=== PATIENT | male | born 1960 | race Caucasian/White ===

== ENCOUNTER 2018-01-24 16:31 | Emergency (ER) | payer OTHER ==
[2018-01-24] MEDS ORDERED: IBUPROFEN 600 MG TAB PO STA (17:46)
--- NOTE | 2018-01-24 18:04 | XR ---
EXAMINATION TYPE: XR finger LT DATE OF EXAM: 01/24/2018 COMPARISON: NONE HISTORY: Second digit laceration TECHNIQUE: 3 views FINDINGS: There is some soft tissue swelling around the DIP joint of the left index finger. There is some spurring at the DIP joint. I see no acute fracture nor dislocation. There is soft tissue deformi ty. IMPRESSION: Soft tissue anterior deformity at the distal phalanx. No fracture seen. Tiny submillimete r foreign bodies noted near the skin surface.
--- NOTE | 2018-01-24 18:51 | ED ---
General Adult HPI - General Chief complaint: Wound/Laceration Stated complaint: Finger laceration Time Seen by Provider: 01/24/18 17:35 Source: patient, RN notes reviewed Mode of arrival: ambulatory Limitations: no limitations - History of Present Illness Initial comments: 57-year-old male presents to the emergency department for a chief complaint of laceration 1 hour. Patient states he was working on a car when something metal lacerated him. Patient states his tetanus was updated last year. Patient states he has sensation in that finger. Patient states he has no difficulty moving the finger. Patient denies any other injuries. Patient has no other complaints at this time including shortness of breath, chest pain, abdominal pain, nausea or vomiting, headache, or visual changes. - Related Data Previous Rx's Medication Instructions Recorded Cephalexin [Keflex] 500 mg PO Q12HR #20 cap 01/24/18 Allergies Allergy/AdvReac Type Severity Reaction Status Date / Time No Known Allergies Allergy Verified 01/24/18 18:52 Review of Systems ROS Statement: Those systems with pertinent positive or pertinent negative responses have been documented in the HPI. ROS Other: All systems not noted in ROS Statement are negative. Past Medical History Past Medical History: CVA/TIA Additional Past Medical History / Comment(s): brain aneursym History of Any Multi-Drug Resistant Organisms: None Reported Additional Past Surgical History / Comment(s): brain aneursym repain Past Psychological History: No Psychological Hx Reported Smoking Status: Never smoker Past Alcohol Use History: None Reported Past Drug Use History: None Reported General Exam Limitations: no limitations General appearance: alert, in no apparent distress Respiratory exam: Present: normal lung sounds bilaterally. Absent: respiratory distress, wheezes, rales, rhonchi, stridor Cardiovascular Exam: Present: regular rate, normal rhythm, normal heart sounds. Absent: systolic murmur, diastolic murmur, rubs, gallop, clicks Extremities exam: Present: full ROM (Full range of motion of the second digit left hand including the DIP.), tenderness (Tenderness to the laceration area. No tenderness elsewhere in the hand or scaphoid area.), normal capillary refill (Refill less than 2 seconds in distal phalanx left second finger as well as the rest of the hand and radial pulse 2+.), other (There is a 1.5 cm laceration of the volar aspect distal phalanx second finger of the left hand. No deep structures affected. All deep structures intact.). Absent: pedal edema, joint swelling Course Vital Signs 01/24/18 17:14 Temperature 97.9 F Pulse Rate 83 Respiratory 18 Rate Blood Pressure 146/76 O2 Sat by Pulse 96 Oximetry Procedures - Procedures Initial comment: Body area: Full aspect distal phalanx left second finger Laceration length: 1.5 cm Foreign bodies: no foreign bodies Tendon involvement: none Nerve involvement: none Vascular damage: no Anesthesia: digital block Local anesthetic: 3 mL 1% lidocaine Preparation: Patient was prepped and draped in the usual sterile fashion. Irrigation solution: saline Irrigation method:saline jet lavage, iodine Skin closure:5-0 Ethilon using sterile technique Number of sutures: 5 Technique: interupted Dressing: antibiotic ointment/ gauze Patient tolerance: Patient tolerated the procedure well with no immediate complications. Medical Decision Making - Medical Decision Making 57-year-old male presents to the emergency determine for chief complaint of laceration to the distal phalanx of the left second digit about one hour ago. Patient was working in a car when he lacerated it with of piece of metal. Patient had an updated tetanus as of last year. On exam there is a 1.5 cm laceration. Deep structures intact. No foreign bodies noted. No signs of cellulitis or infection noted. Wound was sutured with 5 sutures. He was prescribed Keflex because his hands are very dirty with grease that cannot be removed with soap in the emergency department. Patient will return in 7-10 days to have sutures removed. He will follow up with primary care in 1-2 days. Disposition Clinical Impression: Laceration Disposition: HOME SELF-CARE Condition: Good Instructions: Care For Your Stitches (ED), Laceration (ED) Additional Instructions: Please take antibiotic as directed. Please monitor for any signs of infection and return to the emergency department if he notices any. Come back in 7-10 days to have sutures removed. Otherwise follow-up with primary care in 1-2 days. Prescriptions: Cephalexin [Keflex] 500 mg PO Q12HR #20 cap Is patient prescribed a controlled substance at d/c from ED?: No Referrals: Dimas Mejia MD [Primary Care Provider] - 1-2 days Time of Disposition: 18:51
[2018-01-24 19:10] VITALS: BP 138/74; PULSE 78; RESP 20; TEMP 98
== END 2018-01-24 19:10 | disposition home or self-care (01) ==
LOC: EC 16:31
DX: S61.211A Laceration without foreign body of left index finger without damage to nail, initial encounter (principal); Z86.73 Personal history of transient ischemic attack (TIA), and cerebral infarction without residual deficits; W26.8XXA Contact with other sharp object(s), not elsewhere classified, initial encounter; Y93.89 Activity, other specified
CPT/HCPCS: 12001; 99283

== ENCOUNTER → 2018-03-16 | Outpatient (CLI) | payer OTHER ==
--- NOTE | 2018-03-16 15:06 | CONS ---
CONSULTATION DATE OF SERVICE: 03/16/2018 A 57-year-old gentleman who has been evaluated in the Sleep Center for obstructive sleep apnea-hypopnea syndrome. HISTORY OF PRESENT ILLNESS/SLEEP-WAKE EVALUATION: Patient has been diagnosed with obstructive sleep apnea more than 5 years ago in different institution. After that, he received CPAP unit, started to use it, but then because of problem with insurance, he had to return this machine. After that, patient received another unit in long-term, which was not his unit. Patient at the present time continued to trying to use another unit, but sometimes has snoring with the machine and feels tired and sleepiness during the day sometimes. His sleep schedule from 10 p.m. to 7 a.m. basically 7 days a week, usually no problem with falling asleep. No TV in bedroom. He wakes up from sleep 3 times with nocturia. No history of hypnagogic hallucinations, sleep paralysis or cataplexy. He states he is falling asleep even while again he is trying to use an old unit which is not his. According to the , patient has restless leg symptoms and kicking at night [place] Sleepiness Scale is 9. Past medical history positive for brain aneurysm treated in 2007, psoriasis, some problem with urination related to prostate, restless leg symptoms. MEDICATIONS: Motrin, Humira. PAST SURGICAL HISTORY: Surgery for brain aneurysm in 2007, surgery for the right shoulder in 2004 and back surgery in 1995. SOCIAL HISTORY: Positive for smoking for about 30 years up to 2 packs per day. Quit 4 years ago. Alcohol consumption history of overusing alcohol, none at the present time. FAMILY HISTORY: Arthritis, diabetes. PHYSICAL EXAM: A 57-year-old gentleman without distress. BP 114/67, HR 93, RR 18, height 69- 1/2, weight 237.8, BMI 34.4, temperature 97.6, oxygen saturation at room air 93%. OROPHARYNX: Low position of soft palate. Restriction of nasal breathing on the left side. ABDOMEN: Obese. Neck Supple, no JVD. Thyroid is not palpable. LUNGS Clear to percussion and to auscultation. Good air exchange. No wheezing or rhonchi. HEART S1, S2 regular. No murmurs, gallops, or rubs. EXTREMITIES No clubbing or cyanosis. CHILD ATTENDANT Awake, alert, and oriented X3. Cranial nerves 2 to 7 intact. There is no fasciculation or atrophy. noted. No focal deficits observed. IMPRESSION: 1. Snoring, episodes of stopped breathing during the sleep, multiple awakenings from sleep. 2. History of obstructive sleep apnea in the past. Low position of soft palate, wide neck 17.5 inches in circumference. Obstructive sleep apnea-hypopnea syndrome. 3. Obesity, body mass index 34.4. 4. History of brain aneurysms, status post surgical treatment in 2007. 5. Kicking at night, periodic limb movements. 6. Restless leg syndrome. 7. Psoriasis. 8. Status post right shoulder surgery. 9. A left shoulder surgery at the present time. PLAN: 1. Polysomnography for evaluation of patient's breathing during sleep. 2. CPAP/BiPAP titration if sleep study confirms obstructive sleep apnea-hypopnea syndrome. 3. Preferable position during sleep on the side. 4. No driving if patient feels any sleepiness. 5. I will see patient for follow up visit to explain results of testing and following plan. Sincerely, Blue Cesar MD, PhD, FAASM Diplomat of [employer] [employer] Width Stripper of [facility] [place] MMODL / IJN: [id number] /
== END | disposition home or self-care (01) ==
LOC: SLEEP 13:23
PROVIDERS: ATTEND Internal Medicine
DX: G47.33 Obstructive sleep apnea (adult) (pediatric) (principal); E66.9 Obesity, unspecified; Z68.34 Body mass index [BMI] 34.0-34.9, adult; G47.61 Periodic limb movement disorder; G25.81 Restless legs syndrome; L40.9 Psoriasis, unspecified; Z87.891 Personal history of nicotine dependence; Z79.1 Long term (current) use of non-steroidal anti-inflammatories (NSAID); Z79.899 Other long term (current) drug therapy; Z98.890 Other specified postprocedural states
CPT/HCPCS: 99211

== ENCOUNTER → 2018-06-12 | Outpatient (CLI) | payer OTHER ==
--- NOTE | 2018-06-13 10:17 | ECHOS ---
Stress Test Results/Findings: Exam Performed: stress echo exercise Exam Date: 06/12/18 Reason for Exam: ABNORMAL EKG Height: 5 ft 9 in Weight: 108.862 kg Protocol: KRZYSZTOF Stage: 3 Duration of Exercise: 7:00 Resting Heart Rate: 79 Resting Blood Pressure: 129/58 Maximum Achieved Heart Rate: 139 Maximum Achieved Blood Pressure: 191/77 85% PMHR: 139 100% PMHR: 164 METS: 8.5 Technologist Comment: Stress Test Results/Findings: This is a 57-year-old gentleman being evaluated for cardiac status. Because of abnormal EKG. Patient has history of CVA and history of smoking. Stress data: Baseline EKG showed a sinus rhythm with evidence of right bundle- branch block pattern. Patient walked on the Krzysztof protocol for about 7 minutes achieving a maximal heart rate of about 139 with a blood pressure of 191/77. His blood pressure at rest is 129/58 with a heart rate of 79. EKGs taken during and after exercise continued to show right bundle-branch block without any changes from the baseline. Echo data: Baseline echo images showed normal wall motion and thickening. Stress echo images at low dose and high dose dobutamine showed progressive augmentation of the wall motion and thickening in all the segments. Patient did not experience any chest pain. Final impression: #1. Negative dobutamine stress test #2. Negative dobutamine stress echo. [facility]
== END ==
LOC: RADNMMAIN 09:08
PROVIDERS: ATTEND Internal Medicine
DX: R94.31 Abnormal electrocardiogram [ECG] [EKG] (principal)
CPT/HCPCS: 93351

== ENCOUNTER → 2018-10-26 | Outpatient (CLI) | payer OTHER ==
--- NOTE | 2018-10-26 11:33 | SFUN ---
SLEEP CENTER FOLLOW UP NOTE DATE OF SERVICE: 10/26/2018 A 57-year-old gentleman who has been followed in Sleep Center for treatment of obstructive sleep apnea-hypopnea syndrome. Recently, patient had diagnostic polysomnogram which showed severe sleep apnea with apnea-hypopnea index 79 and then patient had CPAP titration and with the titration his respiration normalized. Subsequently, he received a new CPAP unit and today is his first visit with this new CPAP unit. I discussed results of sleep studies with patient and family in detail. He is able to use CPAP equipment every night for the whole night without significant problems. He has slight concern about adjustments of his humidifier. I checked his CPAP unit, range of the pressure 7-13 with 95% to low pressure is 12.3. Leak is 24 L/minute, which is borderline with a full-face mask. Apnea-hypopnea index for the last month is 5.0, which is normal range. [place] Sleepiness Scale today is 6, which is normal. MEDICATIONS: Motrin, Humira. PHYSICAL EXAM: Patient in no distress. BP 117/65, HR 68, RR 16, weight 247, temp 98.0, oxygen saturation at room air 95%. OROPHARYNX: Extremely low position of soft palate, Mallampati 4. ABDOMEN: Obese. Neck Supple, no JVD. Thyroid is not palpable. LUNGS Clear to percussion and to auscultation. Good air exchange. No wheezing or rhonchi. HEART S1, S2 regular. No murmurs, gallops, or rubs. EXTREMITIES No clubbing or cyanosis. IRISH MOSS OPERATOR Awake, alert, and oriented X3. Cranial nerves 2 to 7 intact. There is no fasciculation or atrophy. noted. No focal deficits observed. IMPRESSION: 1. Extremely severe obstructive sleep apnea-hypopnea syndrome; apnea-hypopnea index 79.2 on control with CPAP. Patient demonstrated great compliance with treatment benefitting from treatment. 2. History of brain aneurysm, status post surgical treatment 2007. 3. Obesity. 4. History of restless legs syndrome. 5. Psoriasis. 6. Status post right shoulder surgery. PLAN: 1. Patient will continue to use CPAP equipment every night for the whole night. 2. I will explain patient how to adjust humidity in the machine. 3. Will maintain all necessary CPAP prescriptions including mask, tube, filters. 4. Losing weight. 5. No driving if feeling sleepiness. 6. Followup visit in 1 year or earlier if patient has any problems. Thank you very much for allowing me to participate in the management of your patient. Sincerely, Blue Cesar MD, PhD, FAASM Diplomat of [place] [employer] [place] [employer] [place] Alarm Superintendent of [facility] [place] MMWILL / DIANNE: [id number] /
== END | disposition home or self-care (01) ==
LOC: SLEEP 10:16
PROVIDERS: ATTEND Internal Medicine
DX: G47.33 Obstructive sleep apnea (adult) (pediatric) (principal); G25.81 Restless legs syndrome; L40.9 Psoriasis, unspecified; E66.9 Obesity, unspecified; Z99.89 Dependence on other enabling machines and devices; Z79.1 Long term (current) use of non-steroidal anti-inflammatories (NSAID); Z79.899 Other long term (current) drug therapy; Z86.79 Personal history of other diseases of the circulatory system; Z98.890 Other specified postprocedural states

== ENCOUNTER → 2018-11-03 | Outpatient (CLI) | payer OTHER | END | disposition home or self-care (01) | LOC: LABPAT 10:38 | PROVIDERS: ATTEND Orthopaedic Surgery | DX: Z01.812 Encounter for preprocedural laboratory examination (principal) | CPT/HCPCS: 87070 ==

== ENCOUNTER 2018-11-14 07:00 | Inpatient (IN) | payer OTHER ==
[~2018-11-14 07:00] MED LIST: TRANEXAMIC ACID 1,000 MG in SODIUM CHLORIDE 0.9% 100 ML IVPB ONE; ceFAZolin IN SWFI 2 GM/20 ML SYRINGE IVP ONE
[2018-11-14] MEDS ORDERED: ACETAMINOPHEN TAB 500 MG TAB PO STA (14:40)
[2018-11-14] MEDS ORDERED: MELOXICAM 7.5 MG TAB PO SCH (14:45)
[2018-11-14] MEDS ORDERED: LIDOCAINE 1% 20 ML VIAL (10MG/ML) FOR IV START IV ONE (15:16)
[2018-11-14] MEDS ORDERED: LACTATED RINGERS 1,000 ML IV ONE ×2 (15:16→18:10)
[2018-11-14] MEDS ORDERED: ONDANSETRON 4 MG/2 ML VIAL IVP ONE (15:38)
[2018-11-14] MEDS ORDERED: DEXAMETHASONE SOD PHOSPHATE 10 MG/ML 1 ML VIAL IV ONE (15:39)
[2018-11-14] MEDS ORDERED: MIDAZOLAM 2 MG/2 ML VIAL IV ONE (15:44)
[2018-11-14] MEDS ORDERED: fentaNYL (PF) 50 MCG/ML 2 ML AMP IV ONE (15:44)
--- NOTE | 2018-11-14 16:02 | P.ONQ ---
Anesthesiology Proc Note - PNB - Peripheral Nerve Block Performed Left Interscalene Single Time Out Performed: Yes Procedure Start Time: 15:45 Indication: Acute Post-Operative Pain Specifically requested for management of pain by DrVish: Genaro Koch Sedation Type: Sedate with meaningful contact maintained Preparation: Sterile Prep Position: Supine Catheter: None Needle Types: Other (see comment) (Pajunk) Needle Size: 100mm (4") Needle Gauge: 21 Technique: Ultrasound Injectate: 0.5% Ropivacaine (see comment for volume) (20cc) Blood Aspirated: No Pain Paresthesia on Injection Noted: No Resistance on Injection: Normal Events: Uneventful and Well Tolerated
[2018-11-14] MEDS ORDERED: HYDROcodone/APAP 5-325MG 1 EACH TAB PO PRN ×2 (16:20)
[2018-11-14] MEDS ORDERED: ONDANSETRON 4 MG/2 ML VIAL IVP PRN (16:20)
[2018-11-14] MEDS ORDERED: HYDROmorphone 1 MG/ML 1 ML SYRINGE IVP PRN (16:20)
[2018-11-14] MEDS ORDERED: HYDROmorphone 0.5 MG/0.5 ML SYRINGE IVP PRN ×2 (16:20)
[2018-11-14] MEDS ORDERED: SENNOSIDES-DOCUSATE SODIUM 1 EACH TAB PO PRN (16:20)
[2018-11-14] MEDS ORDERED: hydrOXYzine PAMOATE 25 MG CAP PO PRN (16:20)
[2018-11-14] MEDS ORDERED: TRANEXAMIC ACID 1,000 MG/10 ML VIAL ONE (16:26)
[2018-11-14] MEDS ORDERED: PROPOFOL 10 MG/ML 20 ML VIAL IV ONE (16:26)
[2018-11-14] MEDS ORDERED: fentaNYL (PF) 50 MCG/ML 2 ML AMP ONE (16:26)
[2018-11-14] MEDS ORDERED: SODIUM CHLORIDE 0.9% 100 ML BAG ONE (16:26)
[2018-11-14] MEDS ORDERED: PHENYLEPHRINE-0.9% NACL SYG 1 MG/10 ML SYRINGE ONE (16:26)
[2018-11-14] MEDS ORDERED: GLYCOPYRROLATE 0.2 MG/ML 2 ML VIAL ONE (16:26)
[2018-11-14] MEDS ORDERED: ROPIVACAINE 5 MG/ML 30 ML VIAL ONE (16:26)
[2018-11-14] MEDS ORDERED: SUCCINYLCHOLINE CHLORIDE 100 MG/5 ML SYR IV ONE (16:26)
[2018-11-14] MEDS ORDERED: ROCURONIUM BROMIDE 10 MG/ML 10 ML VIAL IV ONE (16:26)
[2018-11-14] MEDS ORDERED: NEOSTIGMINE 1 MG/ML 10 ML VIAL ONE (16:26)
[2018-11-14] MEDS ORDERED: ceFAZolin 1,000 MG in SODIUM CHLORIDE 0.9% 1,000 ML IRRIGATION ONE (17:02)
--- NOTE | 2018-11-14 18:07 | P.OP ---
Date of Procedure: 11/14/18 Preoperative Diagnosis: Severe osteoarthritis the left shoulder with chronic rotator cuff tear Postoperative Diagnosis: Severe osteoarthritis left shoulder with chronic rotator cuff tear Procedure(s) Performed: Reverse total shoulder arthroplasty Implants: Biomet comprehensive shoulder system, mini humeral stem, 12 mm porous-coated. Biomet comprehensive reverse shoulder system, humeral bearing, 44 mm x 36 mm, standard +3 Biomet comprehensive reverse shoulder system, humeral tray with locking ring, 44 mm, standard Biomet comprehensive reverse shoulder, Glenosphere baseplate, 36 mm Biomet comprehensive reverse shoulder, central screw, 6.5 mm x 25 mm Biomet comprehensive reverse shoulder, fixed locking screw, 4.75 x 25 mm, 15 mm, 15 mm, 25 mm. Biomet comprehensive reverse shoulder glenosphere, 36 mm, standard All components were press-fit. Articulation is metal on polyethylene. Anesthesia: GETA Surgeon: Genaro Koch Cementer Helper #1: Helen Lopez Estimated Blood Loss (ml): 100 Pathology: other (Humeral head) Condition: stable Disposition: PACU Indications for Procedure: This is a patient that presented to my office with severe pain in the shoulder. X-rays demonstrated severe osteoarthritis of the glenohumeral joint of her shoulder. After failure of conservative treatment, we discussed the surgical and nonsurgical treatment options at length. The patient wishes to proceed with a reverse total shoulder arthroplasty. Patient is aware of the complications of the procedure which include but are not limited to infection, hardware failure, persistent pain, dislocation, and nerve injury. Informed consent was obtained. Operative Findings: The operative findings are consistent with severe osteoarthritis of the left shoulder with chronic rotator cuff tear Description of Procedure: The patient was seen in the preoperative area, consent was reviewed, and operative site was marked with a skin marker. Patient was then brought to the operating room and given preoperative antibiotics intravenously. Patient was also given 1 g of Tranexamic acid intravenously. A general anesthetic was administered by the anesthesia department. A Tamayo catheter was placed by the nursing staff. The patient was then placed in a beachchair position with the bony prominences well-padded and the head secured. The shoulder was then prepped and draped in the usual sterile fashion. A universal timeout was then performed, which confirmed the patient's name, surgical site, ALLERGIES, and consent. A standard deltopectoral approach was performed. The skin and subcutaneous tissue was sharply dissected down to the deltoid fascia. The cephalic vein was then identified and retracted medially. The deltopectoral interval was then utilized to expose the subscapularis tendon. A retractor was then placed under the coracobrachialis tendon retracted medially, and the deltoid. The axillary nerve is palpated and protected throughout the procedure. The subscapularis tendon was then released and retracted medially. The humeral head was then exposed easily. The rotator cuff tendon was found to be completely torn and retracted. After the humeral head was exposed, osteophytes were removed with a Ronguer. Next the humeral stem was prepared. A starter reamer was then placed through the humeral head along the axis of the humeral shaft just lateral to the articular surface and just medial to the rotator cuff attachment. Sequential reaming was performed to the appropriate size reamer was inserted to the #between the 3 and 4 on the reamer. Next the intramedullary resection guide was placed on the reamer shaft. It was placed to the appropriate resection depth and angle of 30 of retroversion. Resection guide block was then secured with S teinmann pins. The proximal humerus was then resected. The block was then removed and the humerus was then broached sequentially to the same size as the reamer. After the broaches fully seated, the broach handle was removed and a broach cover was placed protect the humerus while the glenoid was prepared. Next attention was directed to the glenoid. The appropriate retractors were placed around the glenoid and any remaining soft tissues was removed from around the glenoid. After the glenoid was adequately exposed, the threaded glenoid guide was placed onto the glenoid and a 3.2 mm Steinmann pin was inserted in the glenoid at the desired angle and position, ensuring the pin engaged medial cortical wall. Next, the cannulated baseplate reamer was placed over the top of the Steinmann pin. The glenoid was then reamed to the appropriate depth. The glenoid reamer was then removed, leaving the Steinmann pin. The glenoid Deep plate implant was placed on the end of the cannulated baseplate impactor. The baseplate was then impacted fully into the glenoid. Next the 6.5 mm central screw was then placed which afforded excellent fixation. The 4 peripheral locking screws were then drilled measured and placed. Next the appropriate glenosphere was opened and impacted into the glenoid baseplate. Attention was then redirected to the humerus. Next a trial humeral tray was placed in the shoulder was reduced. Shoulder was taken through a full range of motion and found to be stable. The shoulder was then gently dislocated, and the trial humerus and humeral tray were removed. The final humeral stem was impacted in the final humeral tray was impacted as well. Shoulder was then relocated. Again the shoulder was taken through a range of motion and found to have no instability. Shoulder was then irrigated with pulsatile lavage. The shoulder was then irrigated with Irrisept solution. The soft tissues were then injected with a ropivacaine solution, which consisted of 246.25 mg of ropivacaine, 0.5 mg of epinephrine, 30 mg of Toradol, 80 g of clonidine, and 48.45 mL of sterile water, for a total of 100 mL of fluid injected. A second dose of 1 g of Tranexamic acid was given. The subscapularis was then repaired with #1 Vicryl. The deltopectoral interval was then closed with #1 Vicryl as well. The subcutaneous tissues were closed with 2-0 Vicryl then Dermabond was placed on the skin. A sterile dressing was then applied, the patient was transported to the recovery room in an arm sling in stable condition. The project construction assistant manager HEATHER Trejo was required due the complexity of surgery and the need for a skilled registered nurse surgical services.
--- NOTE | 2018-11-14 19:30 | XR ---
PROCEDURE: XR shoulder limited LT - 1V DATE AND TIME: 11/14/2018 6:55 PM CLINICAL INDICATION: PHH; post op TECHNIQUE: AP view COMPARISON: None FINDINGS: Left shoulder orthopedic hardware appears in anatomic positioning and alignment. Postproced ure changes noted. No unexpected findings. IMPRESSION: Postop left shoulder one view.
[2018-11-14 20:03] VITALS: BMI 36.3
[2018-11-14] MEDS: TAMSULOSIN 0.4 MG CAP.ER.24H PO SCH (20:25)
[2018-11-14] MEDS ORDERED: MELATONIN 5 MG TABLET PO PRN (23:27)
[2018-11-15] MEDS: ceFAZolin IN SWFI 2 GM/20 ML SYRINGE IVP SCH ×2 (00:16→09:37)
[2018-11-15] MEDS ORDERED: IPRATROPIUM-ALBUTEROL 3 ML NEB INHALATION PRN (02:32)
[2018-11-15] MEDS: guaiFENesin 600 MG TABLET.ER PO SCH ×2 (02:58→08:08)
[2018-11-15] MEDS: TAMSULOSIN 0.4 MG CAP.ER.24H PO SCH (08:08)
[2018-11-15 08:29] LABS: Basophils % (A) 0 %; Eosinophils # (A) 0.1 k/uL (0-0.7); Eosinophils % (A) 1 %; HCT 41.5 % (39.0-53.0); Lymphocytes # (A) 1.7 k/uL (1.0-4.8); Lymphocytes % (A) 17 %; MCH 30.3 pg (25.0-35.0); MCHC 33.7 g/dL (31.0-37.0); MCV 89.8 fL (80.0-100.0); Mean Platelet Volume 7.2; Monocytes # (A) 0.9 k/uL (0-1.0); Monocytes % (A) 9 %; Neutrophils # (A) 7.1 k/uL (1.3-7.7); Neutrophils % (A) 71 %; Platelet Count 228 k/uL (150-450); RBC 4.62 m/uL (4.30-5.90); RDW 13.3 % (11.5-15.5); WBC 10.1 k/uL (3.8-10.6)
[2018-11-15 08:33] VITALS: BP 121/81; PULSE 102; RESP 18; TEMP 97.7
[2018-11-15] MEDS ORDERED: BENZONATATE 100 MG CAP PO SCH (09:00)
--- NOTE | 2018-11-15 09:19 | P.DS ---
Providers Date of admission: 11/14/18 14:39 Expected date of discharge: 11/15/18 Attending physician: Genaro Koch Consults: 11/14/18 16:20 Consult Physician Routine Consulting Provider: Kimmy Mendoza Consult Reason/Comments: medical management Do you want consulting provider notified?: Yes Primary care physician: Kimmy Reji - Discharge Diagnosis(es) (1) S/p reverse total shoulder arthroplasty Current Visit: Yes Status: Acute (2) Osteoarthritis of left shoulder Current Visit: Yes Status: Acute Hospital Course: This is a 58-year-old male with known history of degenerative arthritis of the left shoulder and chronic rotator cuff tear. The patient presents for evaluation. After discussion and consideration patient elects to proceed with reverse total shoulder arthroplasty. The patient is seen preoperatively by Dr. Koch and medically cleared for surgery by their primary care physician. Patient is admitted to [facility] on 11/14/2018 for reverse total shoulder arthroplasty. The procedures performed without complication or sequelae. The patient is doing well postoperatively. Labs and vital signs are stable on day of discharge. On day of discharge patient's shoulder incision is healing well. There is minimal erythema. There is no drainage noted at this time. There is minimal soft tissue swelling to the shoulder. Patient has full hand and wrist motion without difficulty or pain. Neurovascular status to the left upper extremity is intact. Patient is discharged home in good condition. Opioid start talking form is reviewed and signed at bedside. Please see med rec for accurate list of home medications. Plan - Discharge Summary Discharge Rx Participant: Yes New Discharge Prescriptions: New HYDROcodone/APAP 5-325MG [[place] 5-325] 1 - 2 tab PO Q6HR PRN #56 tab PRN Reason: Pain Sennosides [Senokot] 1 tab PO BID #60 tablet No Action Ibuprofen [Motrin] 800 mg PO DAILY PRN PRN Reason: Pain Adalimumab [Humira(Cf) Pen] 40 mg SQ Q14D Tamsulosin HCl [Flomax] 0.4 mg PO DAILY Discharge Medication List Adalimumab [Humira(Cf) Pen] 40 mg SQ Q14D 11/07/18 [History] Ibuprofen [Motrin] 800 mg PO DAILY PRN 11/07/18 [History] Tamsulosin HCl [Flomax] 0.4 mg PO DAILY 11/14/18 [History] HYDROcodone/APAP 5-325MG [[place] 5-325] 1 - 2 tab PO Q6HR PRN #56 tab 11/15/18 [Rx] Sennosides [Senokot] 1 tab PO BID #60 tablet 11/15/18 [Rx] Follow up Appointment(s)/Referral(s): Genaro Koch DO [Doctor of Osteopathic Medicine] - 2 Weeks Activity/Diet/Wound Care/Special Instructions: Maintain sling for comfort. Dressing to stay in place for 10 days and may be removed by patient or nurse. May shower with dressing in place. Avoid heavy lifting. May start gentle range of motion of the left shoulder as tolerated. Please follow-up with [facility] and call with any questions or concerns, . Discharge Disposition: HOME WITH HOME HEALTH SERVICES
[2018-11-15] MEDS ORDERED: KETOROLAC 30 MG/ML 1 ML VIAL IVP STA (11:28)
--- NOTE | 2018-11-15 15:05 | P.CONS ---
History of Present Illness - Reason for Consult Consult date: 11/14/18 Medical management Requesting physician: Genaro Koch - Chief Complaint Right shoulder surgery - History of Present Illness This is a 58-year-old gentleman patient of Dr. Mendoza. He has underlying history OF prior CVA, BPH, brain aneurysm, obstructive sleep apnea, hypertensive cardiac vascular disease arthritis psoriasis hyperlipidemia, admitted to the hospital for total left shoulder arthroplasty on 11/14/[address] Koch,, he is seen postop day #0, no chest pain no shortness of breath no difficulty of breathing, patient denies any history off PE or DVT in the past, patient denies any difficult to treat wound infections in the past, and is stable postop Review of Systems Constitutional: Reports as per HPI, Denies anorexia, Denies chills, Denies chronic headaches, Denies chronic pain, Denies daytime sleepiness, Denies fatigue, Denies fever, Denies lethargy, Denies malaise, Denies night sweats, Denies poor appetite, Denies sweats, Denies weakness, Denies weight gain, Denies weight loss Ears, nose, mouth and throat: Reports as per HPI, Denies ant. neck pain, Denies bleeding gums, Denies dental pain, Denies dysphagia, Denies epistaxis, Denies headache, Denies hoarseness, Denies mouth pain, Denies nasal congestion, Denies nasal discharge, Denies neck fullness/pressure, Denies neck lump, Denies nose pain, Denies odynophagia, Denies post-nasal drip, Denies sinus pain, Denies sinus pressure, Denies swelling in mouth, Denies swelling in throat, Denies sore throat, Denies vertigo, Denies voice changes Cardiovascular: Reports as per HPI, Denies chest pain, Denies claudication, Denies decreased exercise tolerance, Denies dyspnea on exertion, Denies edema, D enies high blood pressure, Denies irregular heart beat, Denies leg edema, Denies lightheadedness, Denies orthopnea, Denies palpitations, Denies paroxysmal nocturnal dyspnea, Denies phlebitis, Denies rapid heart beat, Denies shortness of breath, Denies syncope Respiratory: Reports as per HPI, Denies congestion, Denies cough, Denies cough with sputum, Denies dyspnea, Denies excessive sputum, Denies hemoptysis, Denies home oxygen, Denies pain, Denies pain on inspiration, Denies pleurisy, Denies respiratory infections, Denies sleep apnea, Denies snoring, Denies wheezing Gastrointestinal: Reports as per HPI, Denies abdominal pain, Denies belching, Denies bloating, Denies BRBPR, Denies change in bowel habits, Denies coffee ground emesis, Denies constipation, Denies diarrhea, Denies dyspepsia, Denies early satiety, Denies excessive gas, Denies heartburn, Denies hematemesis, Denies hematochezia, Denies indigestion, Denies jaundice, Denies lactose intolerance, Denies loss of appetite, Denies melena, Denies nausea, Denies vomiting Genitourinary: Reports as per HPI, Denies decreased libido, Denies difficulties fathering child, Denies discharge, Denies dysuria, Denies erectile dysfunction, Denies flank pain, Denies genital pain, Denies genital sores, Denies hematuria, Denies impotence, Denies incontinence, Denies kidney stones, Denies nocturia, Denies polyuria, Denies testicular lump, Denies testicular pain, Denies urinary frequency, Denies urinary hesitancy, Denies urinary retention Musculoskeletal: Reports as per HPI, Denies arm numbness/tingling, Denies atrophy, Denies fractures, Denies frequent falls, Denies gait dysfunction, Denies hot joints, Denies leg numbness/tingling, Denies limitation of motion, Denies loss of height, Denies low back pain, Denies morning stiffness, Denies muscle cramps, Denies muscle weakness, Denies myalgias, Denies neck pain, Denies neck stiffness, Denies prior amputations, Denies redness of joints, Denies shooting arm pain, Denies shooting leg pain Integumentary: Reports as per HPI, Denies acne, Denies boils, Denies brittle nails, Denies change in hair/nails, Denies color changes, Denies darkening of skin, Denies depigmentation, Denies dryness, Denies foot/leg ulcers, Denies growths, Denies hirsutism, Denies lesions, Denies onychomycosis, Denies pruritus, Denies rash, Denies sores, Denies striae, Denies unusual bruising, Denies wounds Neurological: Reports as per HPI Psychiatric: Reports as per HPI Endocrine: Reports as per HPI Hematologic/Lymphatic: Reports as per HPI Allergic/Immunologic: Reports as per HPI Past Medical History Past Medical History: CVA/TIA, Hypertension, Osteoarthritis (OA), Sleep Apnea/CPAP/BIPAP Additional Past Medical History / Comment(s): BP HAS BEEN NORMAL SINCE HE QUIT SMOKING. Brain aneursym NOVEMBER 2007, HAS RESIDUAL NUMBNESS IN THE TIPS OF USES CPAP. PSORIASIS. History of Any Multi-Drug Resistant Organisms: None Reported Past Surgical History: Back Surgery Additional Past Surgical History / Comment(s): brain aneursym repair 2007. BILATERAL CYSTS OF WRISTS. LUMP REMOVED FROM NECK/LYMPH NODE BX-BOTH NEG. COL ONOSCOPY. Additional Past Anesthesia/Blood Transfusion Reaction / Comm: woke up during a biopsy Past Psychological History: No Psychological Hx Reported Smoking Status: Former smoker Past Alcohol Use History: Occasional Additional Past Alcohol Use History / Comment(s): QUIT SMOKING 5 YRS AGO. Past Drug Use History: None Reported - Past Family History Mother Family Medical History: No Reported History Medications and Allergies Home Medications Medication Instructions Recorded Confirmed Type Adalimumab [Humira(Cf) Pen] 40 mg SQ Q14D 11/07/18 11/14/18 History Ibuprofen [Motrin] 800 mg PO DAILY PRN 11/07/18 11/14/18 History Tamsulosin HCl [Flomax] 0.4 mg PO DAILY 11/14/18 11/14/18 History HYDROcodone/APAP 5-325MG [Gerlaw 1 - 2 tab PO Q6HR PRN #56 tab 11/15/18 Rx 5-325] Sennosides [Senokot] 1 tab PO BID #60 tablet 11/15/18 Rx Allergies Allergy/AdvReac Type Severity Reaction Status Date / Time No Known Allergies Allergy Verified 11/14/18 16:13 Physical Exam Vitals: Vital Signs Temp Pulse Resp BP Pulse Ox 11/14/18 16:03 67 16 127/71 97 11/14/18 15:04 98.0 F 78 16 139/91 96 - Constitutional General appearance: cooperative, no acute distress, obese - EENT Eyes: anicteric sclerae, PERRLA, dentition normal, normal appearance ENT: NA/AT, normal oropharynx - Neck Neck: normal ROM - Respiratory Respiratory: bilateral: CTA, negative: diminished, dullness, rales - Cardiovascular Rhythm: regular Heart sounds: normal: S1, S2 Abnormal Heart Sounds: no systolic murmur, no diastolic murmur, no rub, no S3 Gallop, no S4 Gallop, no click, no other - Gastrointestinal General gastrointestinal: normal bowel sounds, soft - Integumentary Integumentary: normal, normal turgor - Neurologic Neurologic: CNII-XII intact - Musculoskeletal Musculoskeletal: gait normal, strength equal bilaterally - Psychiatric Psychiatric: A&O x's 3, appropriate affect, intact judgment & insight Results CBC & Chem 7: 11/15/18 07:34 Assessment and Plan Plan: 1. Right shoulder reverse arthroplasty, postop day #0 surgery performed 11/14/2018 secondary to advancing DJD, patient is using opiates for pain control, aspirin for DVT prophylaxis, incentive spirometry program, as well as bowel program, physical therapy. Hold off Humira for at least 2 weeks postop 2, history of brain aneurysm nonruptured, surgery 2007 ma asymptomatic 3 History of CVA 4 Obstructive sleep apnea follows by Dr. Cesar for CPAP device 5 Hypertensive cardiovascular disease on diet supplementation 6 Mixed Hyperlipidemia 7 Psoriasis, was on maintenance biological-DMARD's Humira, and this will be held until 2 weeks postop, patient may use oral prednisone when necessary for flares, 8 BPH intermittent recurrent lower tract symptomatology there is a planned procedure for TURP continue Flomax, monitor for urinary retention urologist Dr. Hinson
--- NOTE | 2018-11-15 15:42 | P.PN ---
Subjective Progress Note Date: 11/15/18 This is a 58-year-old male patient of Dr. Dr. Mendoza with past mental history of brain aneurysm with repair in 2007, obstructive sleep apnea, hypertension, osteoarthritis, remote history of tobacco use. Patient has been brought into the hospital under the care of Dr. Koch status post reverse total shoulder arthroplasty. Patient has had ongoing severe pain to the shoulder areas and did not get relief from nonsurgical treatments. 11/15: Patient is seen postop day #1 and he has been afebrile, heart rate running in the 70s and 80s, blood pressure 123/81, pulse ox 94% on room air. White count is 10.1, hemoglobin 14.0. Patient complains of pain to the shoulder area and states that [place] is not helping. Toradol IV once will be ordered prior to his discharge. He is to be on hold his Humira for the next 2 weeks. A shunt has been cleared for discharge by orthopedics. Patient has been urinating without difficulties. No chest pain or shortness of breath. Patient will be discharged home today in stable condition. Review Of Systems: Constitutional: No fever, no chills, no night sweats. No weight change. No weakness, fatigue or lethargy. No daytime sleepiness. EENT: No headache. No blurred vision or double vision, no loss of vision. No loss of Hearing, no ringing in the ears, no dizziness. No nasal drainage or congestion. No epistaxis. No sore throat. Lungs: No shortness of breath, cough, no sputum production. No wheezing. Cardiovascular: No chest pain, no lower extremity edema. No palpitations. No paroxysmal nocturnal dyspnea. No orthopnea. No lightheadedness or dizziness. No syncopal episodes. Abdominal: No abdominal pain. No nausea, vomiting. No diarrhea. No constipation. No bloody or tarry stools.. No loss of appetite. Genitourinary: No dysuria, increased frequency, urgency. No urinary retention. Musculoskeletal: No myalgias. No muscle weakness, no gait dysfunction, no frequent falls. No back pain. No neck pain. Reports left shoulder pain Integumentary: No wounds, no lesions. No rash or pruritus. No unusual bruising. No change in hair or nails. Neurologic: No aphasia. No facial droop. No change in mentation. No head injury. No headache. No paralysis. No paresthesia. Psychiatric: No depression. No anxiety. No mood swings. Endocrine: No abnormal blood sugars. No weight change. No excessive sweating or thirst. No cold intolerance. No weight change. Objective - Vital Signs Vital signs: Vital Signs Temp 97.7 F 11/15/18 07:28 Pulse 102 H 11/15/18 07:28 Resp 18 11/15/18 07:28 BP 121/81 11/15/18 07:28 Pulse Ox 94 L 11/15/18 07:28 Intake & Output 11/14/18 11/15/18 11/15/18 18:59 06:59 18:59 Intake Total 1101 1640 Output Total 100 Balance 1001 1640 Intake: IV 1101 Oral 1640 Output: Estimated Blood Loss 100 Other: Voiding Method Toilet # Voids 2 - Exam Gen: This is a 58-year-old obese male patient. He is ambulating in his room.. HEENT: Head is atraumatic, normocephalic. Pupils equal, round. Sclerae is anicteric. NECK: Supple. No JVD. No lymphadenopathy. No thyromegaly. LUNGS: Clear to auscultation. No wheezes or rhonchi. No intercostal retractions. HEART: Regular rate and rhythm. No murmur. ABDOMEN: Soft. Bowel sounds are present. No masses. No tenderness. EXTREMITIES: No pedal edema. No calf tenderness. Left shoulder is and sling. NEUROLOGICAL: Patient is awake, alert and oriented x3. Cranial nerves 2 through 12 are grossly intact. - Labs CBC & Chem 7: 11/15/18 07:34 Assessment and Plan Plan: 1. Severe osteoarthritis of the left shoulder status post reverse total shoulder arthroplasty, postop day #1. Patient complains of pain. One dose of Toradol will be provided prior to his discharge. 2. History of brain aneurysm nonruptured with surgery in 2007, stable. 3. History of CVA. 4. Obstructive sleep apnea on CPAP. 5. Hypertension on diet control. 6. Hyperlipidemia. 7. Psoriasis on Humira. Patient will for 2 weeks. 8. Benign prostatic hypertrophy. Continue Flomax. Discharge plan: Home Impression and plan of care have been directed as dictated by the signing physician. Nicole Handley nurse practitioner acting as scribe for signing physician.
== END 2018-11-15 13:25 | disposition home health service (06) | DRG 483 ==
LOC: 2ORMAIN 14:39 → 4SSUR 18:23
PROVIDERS: ADMIT Orthopaedic Surgery; ATTEND Orthopaedic Surgery
PROC: 0RRK00Z Replacement of Left Shoulder Joint with Reverse Ball and Socket Synthetic Substitute, Open Approach (ICD-10-PCS; principal; 2018-11-14 16:20)
DX: M19.012 Primary osteoarthritis, left shoulder (principal); I11.9 Hypertensive heart disease without heart failure; M75.102 Unspecified rotator cuff tear or rupture of left shoulder, not specified as traumatic; E66.9 Obesity, unspecified; G47.33 Obstructive sleep apnea (adult) (pediatric); L40.9 Psoriasis, unspecified; N40.0 Benign prostatic hyperplasia without lower urinary tract symptoms; E78.2 Mixed hyperlipidemia; R26.81 Unsteadiness on feet; Z79.899 Other long term (current) drug therapy; Z86.73 Personal history of transient ischemic attack (TIA), and cerebral infarction without residual deficits; Z87.891 Personal history of nicotine dependence; Z86.79 Personal history of other diseases of the circulatory system; Z68.36 Body mass index [BMI] 36.0-36.9, adult
CPT/HCPCS: 64415; 85025; 88300

== ENCOUNTER → 2019-02-22 | Outpatient (CLI) | payer OTHER | END | disposition home or self-care (01) | LOC: LABWHC1 14:17 | PROVIDERS: ATTEND Physician Assistant Medical | DX: L40.0 Psoriasis vulgaris (principal) | CPT/HCPCS: 36415 ==

== ENCOUNTER → 2019-04-05 | Outpatient (CLI) | payer OTHER ==
[2019-04-05 17:59] LABS: Appearance,Urine Clear (Clear); Bilirubin,Urine Negative (Negative); Blood,Urine Negative (Negative); Color,Urine Yellow; Glucose,Urine (UA) Negative (Negative); Ketones,Urine Negative (Negative); Leukocyte Esterase,Urine Negative (Negative); Nitrite,Urine Negative (Negative); PH, Urine 6.5 (5.0-8.0); Protein,Urine Negative (Negative); Specific Gravity,Urine 1.011 (1.001-1.035); Urobilinogen,Urine <2.0 mg/dL (<2.0)
== END | disposition home or self-care (01) ==
LOC: LABWHC1 16:25
PROVIDERS: ATTEND Orthopaedic Surgery
DX: M25.561 Pain in right knee (principal); I10 Essential (primary) hypertension; M17.11 Unilateral primary osteoarthritis, right knee; S83.241D Other tear of medial meniscus, current injury, right knee, subsequent encounter; Z86.73 Personal history of transient ischemic attack (TIA), and cerebral infarction without residual deficits
CPT/HCPCS: 81003

== ENCOUNTER → 2020-11-05 | Outpatient (CLI) | payer OTHER ==
--- NOTE | 2020-11-05 23:05 | SFUN ---
SLEEP CENTER FOLLOW UP NOTE DATE OF SERVICE: 11/05/2020 This is a 60-year-old gentleman who has been followed in the sleep center for treatment of obstructive sleep apnea-hypopnea syndrome. I saw this patient 2 years ago. The patient continues to use his CPAP equipment every night. [place] Sleepiness Scale today is 4. I checked his CPAP unit. It is in automatic regimen with a pressure of 7 to 13, average pressure 12.8. Usage is 30/30 nights for more than 4 hours with average usage 8.3 hours per night. Leak is 42 L/minute, which is high. Apnea-hypopnea index is 7.1. During his previous visit, apnea-hypopnea index was 5.0. MEDICATIONS: 1. Atorvastatin 20 mg once a day. 2. Hydroxyzine 10 mg once a day. 3. Oxybutynin 5 mg once a day. 4. Singulair 10 mg once a day. PHYSICAL EXAMINATION: GENERAL: A pleasant patient in no distress. VITAL SIGNS: BP 159/69, HR 64, RR 15, height 5 feet 10 inches, weight 243.2, temperature 97.6. Oxygen saturation at room air 96%. HEENT: PERRLA, EOMI. Evaluation of oropharynx showed tongue protrudes midline. Extremely low position of soft palate. Mallampati IV. NECK: Supple. No JVD. Thyroid is not palpable. LUNGS: Clear to percussion and to auscultation. Good air exchange. No wheezing or rhonchi. HEART: S1, S2 regular. No murmurs, gallops or rubs. ABDOMEN: Soft and nontender. Bowel sounds are present. No organomegaly appreciated. EXTREMITIES: No clubbing or cyanosis. GRADES 7 8 TUTOR: Awake, alert, and oriented X3. Cranial nerves 2 to 7 intact. There is no fasciculation or atrophy. noted. No focal deficits observed. IMPRESSION: 1. Severe obstructive sleep apnea-hypopnea syndrome; apnea-hypopnea index 79.2. The patient demonstrated 100% compliance with treatment, benefitting from treatment. 2. History of brain aneurysm, status post surgical treatment in 2007. 3. Obesity. 4. History of restless legs syndrome. 5. Psoriasis. 6. Status post right shoulder surgery. PLAN: 1. I increased maximal level of pressure to 14 cm of water, so range is now from 7 to 14 cm of water. 2. Patient will continue to use PAP equipment every night for the whole night. 3. Sleep hygiene with regular time in bed for at least 7-1/2 to 8 hours. 4. Precautions related to driving. No driving if feeling sleepiness. 5. I will maintain all necessary prescription for PAP supplies including mask, tube, filters. 6. Watching weight. 7. No driving if feeling sleepiness. 8. Follow-up visit in 6 months or earlier if patient has any problems. Thank you very much for allowing me to participate in the management of your patient. Sincerely, Blue Cesar MD, PhD, FAASM Diplomat of [place] [employer] [place] [employer] Crystal Finisher of [facility] [place] MMODL / IJN: [id number] /

== ENCOUNTER → 2021-06-04 | Outpatient (CLI) | payer OTHER ==
--- NOTE | 2021-06-04 12:26 | SFUN ---
SLEEP CENTER FOLLOW UP NOTE DATE OF SERVICE: 06/04/2021 This 60-year-old gentleman has been followed in Sleep Center for treatment of obstructive sleep apnea-hypopnea syndrome. The patient successfully continues to use his equipment every night for the whole night; now he cannot sleep without the machine. No snoring with the CPAP. [place] Sleepiness Scale today is 3. During his previous visit, I adjusted the pressure in his CPAP unit up to the maximal pressure from 13 cm of water to 14 cm of water. I checked his CPAP unit. Range of the pressure is 7-14, usage 30/30 nights, average 8.4 hours per night; great compliance. Leak is high at 50 L/minute, but apnea-hypopnea index came down to 5.2. MEDICATIONS: He takes medication for blood pressure. He does not remember the name. He also takes Motrin 800 mg as needed. PHYSICAL EXAMINATION: GENERAL: Pleasant patient in no distress. VITAL SIGNS: BP 118/70, HR 84, RR 18, height 5 feet 9 inches, weight 258. Body mass index 38.2. The patient's weight increased by around 15 pounds since his previous visit. Temperature 97.7, oxygen saturation at room air 97%. NECK: Obese under physical exam: Template. HEENT: PERRLA, EOMI, evaluation of oropharynx showed tongue protrudes midline. Extremely low position of soft palate; Mallampati IV. NECK: Supple, no JVD. Thyroid is not palpable. LUNGS: Clear to percussion and to auscultation. Good air exchange. No wheezing or rhonchi. HEART: S1, S2 regular. No murmurs, gallops, or rubs. ABDOMEN: Obese. EXTREMITIES: No clubbing or cyanosis. COMPUTER SECURITY COORDINATOR: Awake, alert, and oriented X3. Cranial nerves 2 to 7 intact. There is no fasciculation or atrophy. noted. No focal deficits observed. IMPRESSION: 1. Severe obstructive sleep apnea-hypopnea syndrome. Apnea-hypopnea index averaging 79.2. The patient demonstrated 100% compliance. Apnea-hypopnea index down to 5.2 according to reading from the machine. 2. History of brain aneurysm, status post surgical treatment in 2007. 3. Obesity. Patient's weight increased by about 15 pounds. 4. History of restless legs. 5. Psoriasis. 6. Status post right shoulder surgery. PLAN: 1. I increased maximal level of pressure to cm of water, so range now is 7-15 cm of water. 2. Patient will continue to use PAP equipment every night for the whole night. 3. Sleep hygiene with regular time in bed for at least 7-1/2 to 8 hours. 4. Precautions related to driving. No driving if feeling sleepiness. 5. I will maintain all necessary prescription for PAP supplies including mask, tube, filters. 6. Watching weight. 7. Replace air filter. (It is in bad condition.) 8. Follow-up visit in 6 months or earlier if patient has any problems. Thank you very much for allowing me to participate in the management of your patient. Sincerely, Blue Cesar MD, PhD, FAASM Diplomat of [place] [employer] Sleep Medicine Board of [place] [employer] Blue Print Control Clerk of [facility] [place] MMGALEL / MILDREDN: [id number] /
== END ==
LOC: SLEEP 11:12
PROVIDERS: ATTEND Internal Medicine
DX: G47.33 Obstructive sleep apnea (adult) (pediatric) (principal); E66.9 Obesity, unspecified; G25.81 Restless legs syndrome; L40.9 Psoriasis, unspecified; Z98.890 Other specified postprocedural states; Z68.38 Body mass index [BMI] 38.0-38.9, adult; Z86.79 Personal history of other diseases of the circulatory system; Z99.89 Dependence on other enabling machines and devices; Z87.891 Personal history of nicotine dependence

== ENCOUNTER → 2021-12-03 | Outpatient (CLI) | payer OTHER ==
--- NOTE | 2021-12-03 15:16 | SFUN ---
SLEEP CENTER FOLLOW UP NOTE DATE OF SERVICE: 12/03/2021. 61-year-old gentleman has been followed in Sleep Center for treatment of obstructive sleep apnea-hypopnea syndrome. The patient continues to use his CPAP equipment every night for the whole night getting his CPAP supplies in time and changing his air filter on a regular basis once a month. [place] Sleepiness Scale today is 2 which is normal. I checked CPAP unit. Range of the pressure 7-15, usage 30/30 nights for more than 4 hours. Average 9.1 hours per night. Good compliance. Leak is slightly increased to 49 L/minute. Apnea-hypopnea index 5.7 with central apnea index only 0.1, borderline results. The patient is planning for surgery of his left ankle. MEDICATIONS: Motrin, Flomax, medication for blood pressure, patient does not remember the name. PHYSICAL EXAMINATION: GENERAL: Patient in no distress. BP 157/79, HR 91, RR 16, weight 268.2, height 5 feet 9 inches, temperature 97.6, oxygen saturation at room air 95%. Oropharynx: Extremely low position of soft palate, Mallampati 4. NECK: Supple, no JVD. Thyroid is not palpable. LUNGS: Clear to percussion and to auscultation. Good air exchange. No wheezing or rhonchi. HEART: S1, S2 regular. No murmurs, gallops, or rubs. ABDOMEN: Obese. Soft and nontender. Bowel sounds are present. No organomegaly appreciated. EXTREMITIES: No clubbing or cyanosis. FANCY WIRE DRAWER: Awake, alert, and oriented X3. Cranial nerves 2 to 7 intact. There is no fasciculation or atrophy. noted. No focal deficits observed. IMPRESSION: 1. Severe obstructive sleep apnea-hypopnea syndrome apnea-hypopnea index 79.2. The patient demonstrated 100% compliance with treatment benefitting from treatment. Apnea-hypopnea index while on treatment with CPAP, average for the month 5.7, which is borderline. 2. Hypertension. 3. History of brain aneurysm, status post surgical treatment in 2007. 4. Obesity. 5. Left ankle problems, planning for surgical treatment. 6. History of restless leg symptoms. 7. Psoriasis. 8. Status post right shoulder surgery. PLAN: 1. Patient will continue to use PAP equipment every night for the whole night. 2. Sleep hygiene with regular time in bed for at least 7-1/2 to 8 hours. 3. Precautions related to driving. No driving if feeling sleepiness. 4. I will maintain all necessary prescription for PAP supplies including mask, tube, filters. 5. Watching weight. 6. Follow-up visit in 6 months or earlier if patient has any problems. Thank you very much for allowing me to participate in management of your patient. Sincerely, Blue Cesar MD, PhD, FAASM Diplomat of [place] [employer] Sleep Medicine Board of [place] [employer] Director Mortgage of [facility] [place] MMODL / MILDREDN: [id number] /
== END ==
LOC: SLEEP 10:54
PROVIDERS: ATTEND Internal Medicine
DX: G47.33 Obstructive sleep apnea (adult) (pediatric) (principal); E66.9 Obesity, unspecified; Z98.890 Other specified postprocedural states; Z86.79 Personal history of other diseases of the circulatory system; Z99.89 Dependence on other enabling machines and devices; I10 Essential (primary) hypertension; L40.9 Psoriasis, unspecified; M25.572 Pain in left ankle and joints of left foot; G25.81 Restless legs syndrome; Z87.891 Personal history of nicotine dependence

== ENCOUNTER → 2021-12-25 | Outpatient (CLI) | payer OTHER ==
[~2021-12-25] MED LIST changes: +REGADENOSON 0.4 MG/5 ML SYRINGE IV PRN; -TRANEXAMIC ACID 1,000 MG in SODIUM CHLORIDE 0.9% 100 ML IVPB ONE; -ceFAZolin IN SWFI 2 GM/20 ML SYRINGE IVP ONE
--- NOTE | 2021-12-25 11:34 | P.STRESS ---
- Stress Test Note Stress Test Results/Findings: Exam Performed: Exam Date: Reason for Exam: Height: Weight: Protocol: Stage: Duration of Exercise: Resting Heart Rate: Resting Blood Pressure: Maximum Achieved Heart Rate: Maximum Achieved Blood Pressure: 85% PMHR: 100% PMHR: METS: Technologist Comment: Stress Test Results/Findings: This is a 61-year-old gentleman with history of hypertension, hypercholesterolemia, smoking history, and CVA being evaluated for cardiac status. Stress data: Baseline EKG showed sinus rhythm with evidence of a right bundle- branch block. Blood pressure at rest is 138/81, prostate of 65. History and also Lexiscan was infused EKGs taken during and after infusion did not reveal any significant changes from the baseline. Final impression: #1. Negative Lexiscan stress test #2. Report of the nuclear images to be provided by the radiologist.
--- NOTE | 2021-12-25 12:17 | NM ---
EXAMINATION TYPE: NM stress lexiscan cardiolite DATE OF EXAM: 12/25/2021 COMPARISON: NONE HISTORY: Z01.810 TECHNIQUE: After the intravenous administration of 9.1 mCi Tc 99m Sestamibi - Cardiolite resting SPE CT images acquired 45 minutes post injection. The patient received 0.4mg Lexiscan, 24.6 mCi Tc 99m Sestamibi - Stress images obtained [address] injection FINDINGS: Review of stress and rest SPECT images demonstrates no decreased uptake along the inferior wall the l eft ventricle on stress and rest images extending into the septum, along the inferolateral left ventr icle there is some decreased uptake on stress as compared to rest images. Gated analysis shows katerina l wall motion with an estimated left ventricular ejection fraction of 60 %. 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 This message alert has been sent to Kimmy Mendoza MD vi a the preferences provided by the clinician for the receipt of Radiology Critical Findings. Message I D [id number].
== END | disposition home or self-care (01) ==
LOC: RADNMMAIN 08:26
PROVIDERS: ATTEND Internal Medicine
DX: Z01.810 Encounter for preprocedural cardiovascular examination (principal); I25.2 Old myocardial infarction
CPT/HCPCS: 93017; 78452; A9500; J2785

== ENCOUNTER 2022-01-05 09:24 | Day surgery (SDC) | payer OTHER ==
[2022-01-01 15:45] VITALS: BMI 38.1
[~2022-01-05 09:24] MED LIST changes: +ALPRAZolam 0.25 MG TAB PO PRN; +ALPRAZolam 0.5 MG TAB PO PRN; +ASPIRIN 325 MG TAB PO STA; +ATORVASTATIN 80 MG TAB PO STA; +NITROGLYCERIN SL TABS 0.4 MG TAB SUBLINGUAL PRN; -REGADENOSON 0.4 MG/5 ML SYRINGE IV PRN; +SODIUM CHLORIDE 0.9% 1,000 ML in EMPTY BAG 1 BAG IV SCH
[2022-01-05 10:01] VITALS: RESP 18; TEMP 97.9
[2022-01-05] MEDS ORDERED: MIDAZOLAM 2 MG/2 ML VIAL IVP ONE (12:02)
[2022-01-05] MEDS ORDERED: LIDOCAINE 1% INJ 10MG/ML (5 ML VIAL-PF) SQ ONE (12:03)
[2022-01-05] MEDS: VERAPAMIL SYRINGE (5 MG/10 ML) INTRAARTER ONE ×2 (12:05→12:41)
[2022-01-05] MEDS ORDERED: HEPARIN SODIUM 1,000 UN/ML (10ML VL) IV ONE (12:07)
[2022-01-05] MEDS: MIDAZOLAM 2 MG/2 ML VIAL IVP ONE ×2 (12:07→12:20)
[2022-01-05] MEDS ORDERED: fentaNYL (PF) 50 MCG/ML 2 ML AMP IVP ONE (12:24)
[2022-01-05] MEDS ORDERED: ADENOSINE 180 MG in SODIUM CHLORIDE 0.9% 30 ML IVP ONE (12:39)
[2022-01-05] MEDS ORDERED: IOPAMIDOL-370 125ML BTL INJ ONE (12:41)
[2022-01-05] MEDS ORDERED: RX INFO: IV CONTRAST WAS GIVEN 1 EACH MISC MISCELLANE PRN (12:44)
[2022-01-05] MEDS ORDERED: SODIUM CHLORIDE 0.9% 1,000 ML IV SCH (12:45)
--- NOTE | 2022-01-05 12:48 | P.PCN ---
Date of Procedure: 01/05/22 Operative Findings: CARDIAC CATHETERIZATION PERFORMING PHYSICIAN: Sanjay Scott MD, RPVI PROCEDURE PERFORMED: 1. Selective right and left coronary angiogram 2. Left heart catheterization 3. Fractional flow reserve FFR of the LCx INDICATION: Shortness of breath and this 61-year-old gentleman who underwent myocardial perfusion imaging stress test that revealed inferior reversibility. COMPLICATION: None APPROACH: Right radial artery LEVEL OF SEDATION: Moderate with a sedation length of 38 minutes PROCEDURE DESCRIPTION: After obtaining an informed consent, the patient was brought to cardiac construction or leak gang laborer. Local anesthesia was performed using lidocaine subcutaneously. The right radial artery was cannulated using Seldinger technique, the guidewire passed easily, following that we advanced a 5-Kazakh sheath dilator assembly, the wire and dilator were removed and sheath was flushed. Following that, 2 mg of verapamil along with 5000 unit heparin were given. Selective right and left coronary angiogram using a 6-Kazakh JR4 and JL 3.5 catheters. Following that we did left heart catheterization using 6-Kazakh pigtail catheter. The procedure was completed there was no complication. SELECTIVE CORONARY ANGIOGRAM: The right coronary artery: Is a large caliber vessel and a dominant vessel. The RCA in the midportion has mild disease appears to be in the range of 30-40%. Distally bifurcates into PDA and PLV branches both appeared to be angiographically normal. Left main: Is angiographically normal. Bifurcates into all C excellent LAD The left circumflex: Is a large caliber vessel nondominant vessel. The proximal left circumflex is angiographically normal and gives rises into a large OM branch which has a disease in the proximal portion appears to be in the range of 50-60%. FFR was performed and came in to be nonischemic 0.94 The left anterior descending artery: Is a large caliber vessel. The LAD is angiographically normal. Gives rises into a large diagonal branch which seems to be angiographically normal. HEMODYNAMICS: The LVEDP was 12 mmHg without significant gradient across aortic valve CONCLUSION: 1. 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 FFR was performed and came in to be nonischemic 0.94 2. Normal left sided filling pressure POSTPROCEDURE MANAGEMENT: Maximize medical treatment including aggressive cholesterol control and follow- up with the
[2022-01-05] MEDS ORDERED: SODIUM CHLORIDE 0.9% 500 ML 500 ML IV ONE (15:00)
[2022-01-05 15:49] VITALS: BP 147/78; PULSE 68
== END 2022-01-05 16:35 | disposition home or self-care (01) ==
LOC: CATHCVL 09:24
PROVIDERS: ATTEND Internal Medicine Interventional Cardiology
DX: I25.10 Atherosclerotic heart disease of native coronary artery without angina pectoris (principal); R94.31 Abnormal electrocardiogram [ECG] [EKG]; I10 Essential (primary) hypertension; E78.5 Hyperlipidemia, unspecified; R73.03 Prediabetes; G47.30 Sleep apnea, unspecified; I67.1 Cerebral aneurysm, nonruptured; L40.9 Psoriasis, unspecified; E66.3 Overweight; Z20.822 Contact with and (suspected) exposure to COVID-19; Z68.37 Body mass index [BMI] 37.0-37.9, adult; Z79.899 Other long term (current) drug therapy; Z79.82 Long term (current) use of aspirin
CPT/HCPCS: 93571; 93458; 87635; C1887; C1894; C1769; J2250; J2001; J3010; J1644; J0153; Q9967

== ENCOUNTER → 2022-12-02 | Outpatient (CLI) | payer OTHER ==
--- NOTE | 2022-12-02 11:36 | P.PN ---
Subjective DATE: 12/02/2022 FOLLOW UP VISIT. Patient with obstructive sleep apnea hypopnea syndrome return to sleep center for follow-up visit. Information from previous visit have been reviewed. Patient is using PAP equipment every night for the whole night, getting PAP supplies in time. The patient does not have significant problems with the mask, PAP unit and humidification. [place] sleepiness scale is 2, which is perfect. I checked information from PAP unit and discussed it with patient in details. PAP unit pressure 7-15 cm H2O. Usage is 100 % for more then 4 hours, average 9.3 hours per night. Leak was 54 l/m for the last months, but decreased to 25 l/m for last night, which is in acceptable range after patient received new mask. Apnea Hypopnea Index is 3.8 for the last months and 2.3 for the last night, which is normal. MEDICATIONS:1. Flomax 2. Motrin 3. Blood pressure medications, patient does not remember the name During physical exam: GENERAL: A pleasant patient without any distress. VITAL SIGNS: BP 145/77, HR 74, RR 16 , weight 275, patient increased his weight on 7 pounds comparing with previous visit, BMI 40.6, temperature 97.9, oxygen saturation at room air 98 % . HEENT: PERRLA, EOMI.low position of soft palate, Mallapati 4 . NECK: Supple. No JVD. LUNGS: Clear to percussion and to auscultation. Good air exchange. No wheezing or rhonchi. HEART: S1, S2 regular. ABDOMEN: Soft and nontender. Obese EXTREMITIES: No clubbing or cyanosis. TREATING ENGINEER HELPER: Awake, alert, and oriented x3. No focal deficit. Impressions: 1. Obstructive sleep apnea-hypopnea syndrome. Patient demonstrated great compliance with treatment, benefiting from treatment. 2. Obesity body mass index 40.6. 3. Hypertension. 4. History of brain aneurysm, status post surgical treatment in 2007. 5. History of restless leg symptoms, no present complaints. 6. History of psoriasis. 7. Status post right shoulder surgery. Plan: 1. Continue using PAP equipment every night for the whole night. 2. To change air filter at least 1-2 times per month. 3. PAP unit should stay lower then position of the head. 4. Advised patient to remove all remaining water from humidifier canister daily and make it dry after each usage. Refill canister with fresh distilled water before each usage. 5. Sleep hygiene with regular time in bed for at least 8 hours. 6. Precautions related to driving. No driving if feel any sleepiness. 7. I will maintain prescription for PAP supplies including mask, tube, filters. 8. Watching and losing weight. 9. Follow up visit in 6 months or earlier if patient has any problems. Thank you very much for allowing me to participate in the management of your patient. Blue Cesar MD, PhD, FAASM. Diplomat of [place] [employer], Sleep Medicine Board by [place] [employer] [facility] [place]
== END ==
LOC: SLEEP 11:07
PROVIDERS: ATTEND Internal Medicine
DX: G47.33 Obstructive sleep apnea (adult) (pediatric) (principal); E66.9 Obesity, unspecified; Z99.89 Dependence on other enabling machines and devices; I10 Essential (primary) hypertension; G25.81 Restless legs syndrome; Z68.41 Body mass index [BMI] 40.0-44.9, adult; Z79.1 Long term (current) use of non-steroidal anti-inflammatories (NSAID); Z98.890 Other specified postprocedural states; Z87.891 Personal history of nicotine dependence; Z79.899 Other long term (current) drug therapy; Z96.611 Presence of right artificial shoulder joint; Z86.69 Personal history of other diseases of the nervous system and sense organs; Z87.2 Personal history of diseases of the skin and subcutaneous tissue
CPT/HCPCS: 99212

== ENCOUNTER → 2023-12-01 | Outpatient (CLI) | payer OTHER ==
--- NOTE | 2023-12-01 11:37 | P.PN ---
Subjective DATE: 12/01/2023 FOLLOW UP VISIT. Patient with obstructive sleep apnea hypopnea syndrome return to sleep center for follow-up visit. Information from previous visit have been reviewed. Patient is using PAP equipment every night for the whole night, getting PAP supplies in time. The patient does not have significant problems with the mask, PAP unit and humidification. [place] sleepiness scale is 2, which is normal. I checked information from PAP unit. PAP unit pressure 7-15, average 13 cm H2O. Usage is 100% for more then 4 hours, average 9.8 hours per night. Leak is significantly increased to 62 l/m, recently patient received new mask. Apnea Hypopnea Index is slightly increased to 6.2. MEDICATIONS: Have been reviewed, please see list in hospital chart During physical exam: GENERAL: A pleasant patient without any distress. VITAL SIGNS: Please see below, BMI 40.6. HEENT: PERRLA, EOMI.low position of soft palate, Mallapati 4 . NECK: Supple. No JVD. LUNGS: Clear to percussion and to auscultation. Good air exchange. No wheezing or rhonchi. HEART: S1, S2 regular. ABDOMEN: Soft and nontender. Obese EXTREMITIES: No clubbing or cyanosis. INTRUSION ANALYST: Awake, alert, and oriented x3. No focal deficit. Impressions: 1. Obstructive sleep apnea-hypopnea syndrome. Patient demonstrated great compliance with treatment, benefiting from treatment. 2. Obesity, patient lost 4 pounds comparing with the previous visit, BMI 40.6. 3. Hypertension. 4. History of brain aneurysm, status post surgical correction in 2007. 5. History of restless legs, presently no problems. 6. History of psoriasis. 7. Status post right shoulder surgery. I increased range of pressure in CPAP unit to 7-16 cm of water. Plan: 1. Continue using PAP equipment every night for the whole night. 2. To change air filter at least 1-2 times per month. 3. PAP unit should stay lower then position of the head. 4. Advised patient to remove all remaining water from humidifier canister daily and make it dry after each usage. Refill canister with fresh distilled water before each usage. 5. Sleep hygiene with regular time in bed for at least 8 hours. 6. Precautions related to driving. No driving if feel any sleepiness. 7. I will maintain prescription for PAP supplies including mask, tube, filters. 8. Follow up visit in 6 months or earlier if patient has any problems. 9. Watching and losing weight. Thank you very much for allowing me to participate in the management of your patient. Blue Cesar MD, PhD, FAASM. Diplomat of [place] [employer], Sleep Medicine Board by [employer] [employer] [facility] [place] Objective - Vital Signs Vital signs: Vital Signs Temp 97.8 F 12/01/23 11:21 Pulse 71 12/01/23 11:21 Resp 16 12/01/23 11:21 BP 135/72 12/01/23 11:21 Pulse Ox 96 12/01/23 11:21 FiO2 Intake & Output 11/30/23 12/01/23 12/01/23 18:59 06:59 18:59 Weight 122.924 kg
[2023-12-01 11:48] VITALS: BP 135/72; PULSE 71; RESP 16; TEMP 97.8
== END ==
LOC: 3 N SLEEP 11:03
PROVIDERS: ATTEND Internal Medicine
DX: G47.33 Obstructive sleep apnea (adult) (pediatric) (principal); E66.9 Obesity, unspecified; I10 Essential (primary) hypertension; Z68.41 Body mass index [BMI] 40.0-44.9, adult; Z86.79 Personal history of other diseases of the circulatory system; Z87.39 Personal history of other diseases of the musculoskeletal system and connective tissue; Z87.2 Personal history of diseases of the skin and subcutaneous tissue; Z98.890 Other specified postprocedural states; Z99.89 Dependence on other enabling machines and devices; Z79.899 Other long term (current) drug therapy; Z87.891 Personal history of nicotine dependence
CPT/HCPCS: 99212

== ENCOUNTER → 2024-06-20 | Outpatient (CLI) | payer OTHER ==
[2024-06-20 10:45] VITALS: BP 148/84; PULSE 78; RESP 16; TEMP 97.8
--- NOTE | 2024-06-20 11:22 | P.PROGSL ---
Subjective DATE: 06/20/2024 FOLLOW UP VISIT. Patient with obstructive sleep apnea hypopnea syndrome return to sleep center for follow-up visit. Information from previous visit have been reviewed. Patient is using PAP equipment every night for the whole night, getting PAP supplies in time. The patient does not have significant problems with the mask, PAP unit and humidification. [place] sleepiness scale is 2, which is normal. I checked information from PAP unit. PAP unit pressure 7-16, average 12.3 cm H2O. Usage is 100% for more then 4 hours, average 9.3 hours per night. Leak is increased to 53 l/m, mask needs to be replaced. Apnea Hypopnea Index is 3.9, which is normal. MEDICATIONS have been reviewed, please see below. During physical exam: GENERAL: A pleasant patient without any distress. VITAL SIGNS: Please see below, weight is 263 lbs. HEENT: PERRLA, EOMI.low position of soft palate, Mallapati 4 . NECK: Supple. No JVD. LUNGS: Clear to percussion and to auscultation. Good air exchange. No wheezing or rhonchi. HEART: S1, S2 regular. ABDOMEN: Soft and nontender. Obese EXTREMITIES: No clubbing or cyanosis. RANCH HELPER: Awake, alert, and oriented x3. No focal deficit. Impressions: 1. Obstructive sleep apnea-hypopnea syndrome. Patient demonstrated great compliance with treatment, benefiting from treatment. 2. Obesity, BMI 39.9. 3. Hypertension. 4. History of brain aneurysm, status post surgical treatment in 2007. 5. History of restless legs, no complaints at the present time. 6. Status post right shoulder surgery. 7. History of psoriasis. Plan: 1. Continue using PAP equipment every night for the whole night. 2. Sleep hygiene with regular time in bed for at least 7.5-8 hours 3. PAP unit should stay lower then position of the head. 4. Advised patient to remove all remaining water from humidifier canister daily and make it dry after each usage. Refill canister with fresh distilled water before each usage. 5. Watching and losing weight. 6. Precautions related to driving. No driving if feel any sleepiness. 7. I will maintain prescription for PAP supplies including mask, tube, filters. 8. Follow up visit in 8 months or earlier if patient has any problems. Thank you very much for allowing me to participate in the management of your patient. Blue Cesar MD, PhD, FAASM. Diplomat of [place] [employer], Sleep Medicine Board by [place] [employer] [facility] [place] Objective - Vital Signs Vital Signs: Vital Signs Temp 97.8 F 06/20/24 10:44 Pulse 78 06/20/24 10:44 Resp 16 06/20/24 10:44 BP 148/84 06/20/24 10:44 Pulse Ox 97 06/20/24 10:44 FiO2 Intake & Output 06/19/24 06/20/24 06/20/24 18:59 06:59 18:59 Weight 119.295 kg Home Medications: Home Medications Medication Instructions Recorded Confirmed Type Tamsulosin HCl [Flomax] 0.4 mg PO HS 11/14/18 06/20/24 History Ezetimibe [Zetia] 10 mg PO HS 01/01/22 06/20/24 History Metoprolol Succinate (ER) [Toprol 25 mg PO DAILY 01/01/22 06/20/24 History XL] Montelukast [Singulair] 10 mg PO HS 01/01/22 06/20/24 History Risankizumab-Rzaa [Skyrizi] 150 mg SQ Q90D 01/01/22 06/20/24 History Aspirin 325 mg PO DAILY PRN 01/05/22 12/01/23 History Losartan/Hydrochlorothiazide 1 tab PO DAILY 01/05/22 06/20/24 History [Losartan-Hctz 100-12.5 mg Tab] Dupilumab [Dupixent Pen] 0 mg SQ 12/01/23 History Semaglutide [Wegovy] 0.25 mg SQ 12/01/23 History
== END ==
LOC: 3 N SLEEP 10:36
PROVIDERS: ATTEND Internal Medicine
CPT/HCPCS: 99212

== ENCOUNTER → 2024-11-07 | Outpatient (CLI) | payer OTHER ==
[2024-11-07 13:46] VITALS: BP 132/85; PULSE 74; RESP 16; TEMP 97.7
--- NOTE | 2024-11-07 15:05 | P.PROGSL ---
Subjective DATE: 11/07/2024 FOLLOW UP VISIT. Patient with obstructive sleep apnea hypopnea syndrome return to sleep center for follow-up visit. Information from previous visit have been reviewed. Patient is using PAP equipment every night for the whole night, getting PAP supplies in time. CPAP unit is noisy. [place] sleepiness scale is 2 which is normal. I checked information from PAP unit. CPAP unit is noisy and old. PAP unit pressure 7-16, average 10.9 cm H2O. Usage is 100% for more then 4 hours, average 8.8 hours per night. Leak is increased to 60 l/m. Apnea Hypopnea Index is 2.9, which is normal. MEDICATIONS have been reviewed, please see below. During physical exam: GENERAL: A pleasant patient without any distress. VITAL SIGNS: Please see below, weight is 162 pounds, BMI 39.8 lbs. HEENT: PERRLA, EOMI.low position of soft palate, Mallapati 4 . NECK: Supple. No JVD. LUNGS: Clear to percussion and to auscultation. Good air exchange. No wheezing or rhonchi. HEART: S1, S2 regular. ABDOMEN: Soft and nontender. Obese EXTREMITIES: No clubbing or cyanosis. RESIDENTIAL PROGRAM MANAGER: Awake, alert, and oriented x3. No focal deficit. Impressions: 1. Obstructive sleep apnea-hypopnea syndrome. Patient demonstrated great compliance with treatment, benefiting from treatment. 2. Obesity, BMI 39.8. 3. Hypertension. 4. History of brain aneurysm, status post surgical treatment in 2007. 5. History of restless legs, clinically no problems at the present time. 6. History of psoriasis. 7. Status post right shoulder surgery. Plan: 1. Continue using PAP equipment every night for the whole night. Prescription to replace CPAP unit. 2. Sleep hygiene with regular time in bed for at least 7.5-8 hours 3. PAP unit should stay lower then position of the head. 4. Advised patient to remove all remaining water from humidifier canister daily and make it dry after each usage. Refill canister with fresh distilled water before each usage. 5. Watching weight. 6. Precautions related to driving. No driving if feel any sleepiness. 7. I will maintain prescription for PAP supplies including mask, tube, filters. 8. Follow up visit in 1-3 months after patient will get new CPAP unit to check compliance with treatment, evaluate clinical response on treatment and [place] adjustments related to mask fitting pressure and humidification. Thank you very much for allowing me to participate in the management of your patient. Blue Cesar MD, PhD, FAASM. Diplomat of [place] [employer], Sleep Medicine Board by [place] [employer] [facility] [place] Objective - Vital Signs Vital Signs: Vital Signs Temp 97.7 F 11/07/24 13:45 Pulse 74 11/07/24 13:45 Resp 16 11/07/24 13:45 BP 132/85 11/07/24 13:45 Pulse Ox 97 11/07/24 13:45 FiO2 Intake & Output 11/06/24 11/07/24 11/07/24 18:59 06:59 18:59 Weight 118.841 kg Home Medications: Home Medications Medication Instructions Recorded Confirmed Type Tamsulosin HCl [Flomax] 0.4 mg PO HS 11/14/18 11/07/24 History Ezetimibe [Zetia] 10 mg PO HS 01/01/22 11/07/24 History Metoprolol Succinate (ER) [Toprol 25 mg PO DAILY 01/01/22 11/07/24 History XL] Montelukast [Singulair] 10 mg PO HS 01/01/22 11/07/24 History Risankizumab-Rzaa [Skyrizi] 150 mg SQ Q90D 01/01/22 11/07/24 History Aspirin 325 mg PO DAILY PRN 01/05/22 12/01/23 History Losartan/Hydrochlorothiazide 1 tab PO DAILY 01/05/22 11/07/24 History [Losartan-Hctz 100-12.5 mg Tab] Dupilumab [Dupixent Pen] 0 mg SQ 12/01/23 History Semaglutide [Wegovy] 0.25 mg SQ 12/01/23 History Atorvastatin [Lipitor] 40 mg PO DAILY 11/07/24 11/07/24 History Dulaglutide [Trulicity] 1.5 mg IM WEEKLY 11/07/24 11/07/24 History
== END ==
LOC: 3 N SLEEP 13:10
PROVIDERS: ATTEND Internal Medicine
DX: G47.33 Obstructive sleep apnea (adult) (pediatric) (principal); E66.9 Obesity, unspecified; Z68.39 Body mass index [BMI] 39.0-39.9, adult; I10 Essential (primary) hypertension; Z86.79 Personal history of other diseases of the circulatory system; Z87.2 Personal history of diseases of the skin and subcutaneous tissue; Z98.890 Other specified postprocedural states; Z87.891 Personal history of nicotine dependence
CPT/HCPCS: 99212